=== PATIENT | female | born 1985 | race Caucasian/White ===

== ENCOUNTER 2021-07-19 06:07 | Inpatient (IN) | payer OTHER, SELFPAY ==
[2021-07-19] VITALS (91 sets, daily range): BP systolic 69–131; BP diastolic 41–87; PULSE 65–114; RESP 16–18; TEMP 36.2–37.6; O2SAT 96–100; BMI 25.9
--- OUTSIDE RECORDS SUMMARY | 2021-07-19 06:13 | XMS_ITS | Encounter Summary ---
:1985 Author Reason for Visit return OB visit Assessment and Plan 1. Advanced maternal age Discussion Note: None recorded.Patient educational handouts: No information available. Plan of Care Reminders Provider Appointments None ? ? recorded. Lab None ? ? recorded. Referral None ? ? recorded. Procedures None ? ? recorded. Surgeries None ? ? recorded. Imaging None ? ? recorded. Medications No Medications Reported Notes: pnv/ iron Medications Administered None recorded. Vitals Height Weight Blood Pressure 5 ft 4 in 149 lbs 110/66 mm[Hg] Results Lab Results None recorded. Allergies Code Code System Name Reaction Severity Onset NKDA ? ? ? Problems Name Status Onset Date Source ? Active 12/02/2020 ? Procedures Date Name Performed by ? ? Appendectomy Information not avai lable Notes: 2014 ? Other Information not avai lable Notes: 2012 suction D&C after taking the pill ? Gastrointestinal Surgery Information not availabl
--- OUTSIDE RECORDS SUMMARY | 2021-07-19 06:13 | XMS_ITS | Encounter Summary ---
:1985 Author Reason for Visit OB Ultrasound Assessment and Plan None recorded.Discussion Note: None recorded.Patient educational handouts: No information available. Plan of Care Reminders Provider Appointments None ? ? recorded. Lab None ? ? recorded. Referral None ? ? recorded. Procedures None ? ? recorded. Surgeries None ? ? recorded. Imaging None ? ? recorded. Medications No Medications Reported Notes: pnv/ iron Medications Administered None recorded. Vitals None recorded. Results Lab Results None recorded. Allergies Code Code System Name Reaction Severity Onset NKDA ? ? ? Problems Name Status Onset Date Source ? Active 12/02/2020 ? Procedures Date Name Performed by ? ? Appendectomy Information not avai lable Notes: 2014 ? Other Information not [facility] Notes: 2013 suction D&C after taking the pill ? Gastrointestinal Surgery Information not available Notes: 2009 double bowel obstruction 3 inches of colon removed Notes: lung collapse- chest tube 2017 Vaccine
--- OUTSIDE RECORDS SUMMARY | 2021-07-19 06:13 | XMS_ITS | Encounter Summary ---
:1985 Author Reason for Visit return OB visit Assessment and Plan 1. Routine care 2. Dysuria ? culture, urine Discussion Note: None recorded.Patient educational handouts: No information available. Plan of Care Reminders Provider Appointments None ? ? recorded. Lab Culture, 06/01/2021 [facility] ( Lab) Referral None ? ? recorded. Procedures None ? ? recorded. Surgeries None ? ? recorded. Imaging None ? ? recorded. Medications No Medications Reported Notes: pnv/ iron Medications Administered None recorded. Vitals Height Weight Blood Pressure 5 ft 4 in 145 lbs 100/58 mm[Hg] Results Lab Results None recorded. Allergies Code Code System Name Reaction Severity Onset NKDA ? ? ? Problems Name Status Onset Date Source ? Active 12/02/2020 ? Procedures Date Name Performed by ? ? Appendectomy Information not abner burrell Notes: 2014 ? Other
--- OUTSIDE RECORDS SUMMARY | 2021-07-19 06:13 | XMS_ITS | Encounter Summary ---
[...] Weight Blood Pressure 5 ft 4 in 144 lbs 106/62 mm[Hg] Results Lab Results None recorded. Allergies [...]
--- OUTSIDE RECORDS SUMMARY | 2021-07-19 06:13 | XMS_ITS | Encounter Summary ---
:1985 Author Reason for Visit return OB visit Assessment and Plan 1. Routine care Discussion Note: None recorded.Patient educational handouts: No information available. Plan of Care Reminders Provider Appointments None ? ? recorded. Lab None ? ? recorded. Referral None ? ? recorded. Procedures None ? ? recorded. Surgeries None ? ? recorded. Imaging None ? ? recorded. Medications No Medications Reported Notes: pnv/ iron Medications Administered None recorded. Vitals Weight Blood Pressure 150 lbs 110/62 mm[Hg] Results Lab Results None recorded. Allergies Code Code System Name Reaction Severity Onset NKDA ? ? ? Problems Name Status Onset Date Source ? Active 12/02/2020 ? Procedures Date Name Performed by ? ? Appendectomy Information not abner burrell Notes: 2014 ? Other Information not abner burrell Notes: 2013 suction D&C after taking the pill ? Gastrointestinal Surgery Information not available
--- OUTSIDE RECORDS SUMMARY | 2021-07-19 06:13 | XMS_ITS | Encounter Summary ---
:1985 Author Reason for Visit return OB visit Assessment and Plan 1. Advanced maternal age ? streptococcus group B, cul ture, vaginal or rectal Discussion Note: None recorded.Patient educational handouts: No information available. Plan of Care Reminders Provider Appointments None recorded. ? ? Lab Streptococcus Gat [facility] Group B, Culture, Vaginal 06/16/2021 [facility] (Lab) or Rectal Referral None recorded. ? ? Procedures None recorded. ? ? Surgeries None recorded. ? ? Imaging None recorded. ? ? Medications No Medications Reported Notes: pnv/ iron Medications Administered None recorded. Vitals Height Weight Blood Pressure 5 ft 4 in 149 lbs 102/60 mm[Hg] Results Lab Results Date Name Specimen Result Interpretation Description Value Range Status Address ? 06/16/2021 Streptococcus SOURCE ABNORMAL Strep Gp positive negat art Final [facility]: Group B, NOT B [address] Culture, INDICATED TORRES+rflx Dami bone Vaginal or Rd, Rectal [place] ? ? SOURCE ? Organism comment ? Final [facility] rp: NOT Identific
--- OUTSIDE RECORDS SUMMARY | 2021-07-19 06:13 | XMS_ITS ---
:1985 Author Care Team Providers Name Role Phone Stan Corona Primary Care Provider Unavailable Allergies Code Code System Name Reaction Severity Status Onset NKDA ? Medications Name Status Start Date Stop Date ? ? Estarylla 0.25 mg-35 mcg tablet Completed ? 11/30/2020 TK 1 T PO QD ibuprofen 600 mg tablet Completed ? 12/01/19 TK 1 T PO Q 6 H PRF CRAMPING Iron (ferrous sulfate) 325 mg (65 mg iron) tablet Completed 09/11/2018 03/01/2019 Take 1 tablet twice a day by oral route. metoclopramide 10 mg tablet Completed ? 01/14 TAKE 1 TABLET BY MOUTH FOUR TIMES DAILY FOR 10 DAYS nitrofurantoin monohydrate/macrocrystals 100 mg capsule Complete d ? 03/30/2021 TAKE 1 CAPSULE BY MOUTH EVERY 12 HOURS FOR 7 DAYS Notes: pnv/ iron Problems Name Status Onset Date Source ? Unknown 04/10/2018 History Active 12/02/2020 ? Procedures Date Name Performed by ? ? Appendectomy Information not avai [facility] Notes: 2014 ? Other Information not [facility] Notes: 2013 suction D&C after taking the pill ? Gastrointestinal Surgery Information not available Notes: 2009 double bowel obstruction 3 inches of colon removed 11/30/2020 US, Obstetric, 1St Trimester [facility] (Imaging) [address] [place], [place] [address]
--- OUTSIDE RECORDS SUMMARY | 2021-07-19 06:14 | XMS_ITS | Encounter Summary ---
[...] Pressure 5 ft 4 in 145 lbs 106/58 mm[Hg] Results Lab Results None recorded. Allergies Code Code System Name Reaction Severity Onset NKDA ? ? ? Problems Name Status Onset Date Source ? Active 12/02/2020 ? Procedures Date Name Performed by ? ? Appendectomy Information not avai lable Notes: 2014 ? Other Information not liaai [facility] Notes: 2012 suction D&C after taking the pill ? Gastrointestinal Surgery Information not available
--- OUTSIDE RECORDS SUMMARY | 2021-07-19 06:14 | XMS_ITS ---
:1985 Author Care Team Providers Name Role Phone GEN VELOZ Primary Care Provider [phone] Allergies Code Code System Name Reaction Severity Status Onset NKDA ? Medications Name Status Start Date Stop Date ? ? Estarylla 0.25 mg-35 mcg tablet Active ? Not available TK 1 T PO QD ibuprofen 600 mg tablet Active ? Not avai lable TK 1 T PO Q 6 H PRF CRAMPING Iron (ferrous sulfate) 325 mg (65 mg iron) tablet Completed ? 03/01/2019 Take 1 tablet twice a day by oral route. nitrofurantoin monohydrate/macrocrystals 100 mg capsule Complete d ? 06/12/2018 TK 1 C PO Q 12 H FOR 7 DAYS Problems Name Status Onset Date Source ? Unknown 04/10/2018 ? Procedures Date Name Performed by ? ? Appendectomy Information not abner burrell Notes: age 16 ? Gastrointestinal Surgery Information not available Notes: 2009 double bowel obstruction 3 inches of colon removed ? 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
--- OUTSIDE RECORDS SUMMARY | 2021-07-19 06:14 | XMS_ITS | Encounter Summary ---
:1985 Author Reason for Visit return OB visit Assessment and Plan 1. Routine care ? glucose tolerance test, ge stational, 1-hour ? HIV (1+2) Ab screen, serum ? hemoglobin + hematocrit, b lood Discussion Note: None recorded.Patient educational handouts: No information available. Plan of Care Reminders Provider Appointments None recorded. ? ? Lab Glucose [facility] Tolerance Test, 04/27/2021 [facility] ( Lab) Gestational, 1-Hour ? HIV (1+2) Ab [facility] Screen, Serum 04/27/2021 [facility] ( Lab) ? Hemoglobin + [facility] Hematocrit, Blood 04/27/2021 [facility] (Lab) Referral None recorded. ? ? Procedures None recorded. ? ? Surgeries None recorded. ? ? Imaging None recorded. ? ? Medications No Medications Reported Notes: pnv/ iron Medications Administered None recorded. Vitals Height Weight Blood Pressure 5 ft 4 in 142 lbs 112/74 mm[Hg] Results Lab Results Date Name Specimen Result Interpretat
--- NOTE | 2021-07-19 06:35 | LDADM ---
This patient, Kya Kennedy, was admitted to Labor/Delivery/Recovery 105 on 07/19/21 at 06:07. Plans for labor, pain management and were discussed with patient. Patient/family oriented to hospital policies and general routines including ID bracelet, bed and alarms, visiting hours, pain management, procedures, bathroom and other care routines, personal items, smoking policy, room service/diet and guest tray routines, infant security routines, and visiting hours. Patient/Family are encouraged to report perceived risks to care and to ask questions if they do not understand what they are told or what they should do. See OBIX for further documentation.
[2021-07-19 07:02] LABS: Basophils Percent Auto 0.5 % (0.2-1.2); Eosinophils Absolute Auto 0.2 K/mm3 (0-0.3); Eosinophils Percent Auto 1.9 % (0-4.4); Hematocrit 30.9 % (37.0-47.0); Hemoglobin 9.3 g/dL (12.0-15.0); Immature Granulocyte Absolute 0.16 K/mm3 (0.00-0.031); Immature Granulocyte Percent A 1.8 % (0-0.5); Immature Platelet Fraction Pct 21.7 % (0.9-11.2); Lymphocytes Percent Auto 26.1 % (18.3-44.2); Mean Corpuscular HGB Conc 30.1 g/dl (32-36); Mean Corpuscular Hemoglobin 21.8 pg (26-34); Mean Corpuscular Volume 72.4 fl (80-100); Monocytes Absolute Auto 0.7 K/mm3 (0.1-0.6); Monocytes Percent Auto 7.5 % (2.6-8.5); Neutrophils Absolute Auto 5.5 K/mm3 (1.3-6.7); Neutrophils Percent Auto 62.2 % (45.5-73.1); Platelet Count Result 167 k/mm3 (150-375); Red Blood Count 4.27 M/mm3 (4.2-5.4); Red Cell Distribution Width 18.4 % (11.5-14.5); White Blood Count 8.8 K/mm3 (4.5-10.0)
[2021-07-19] MEDS: AMPICILLIN 2 GM/NS 100 ML 2 GM/100 ML BAG IVPB (07:09)
[2021-07-19] MEDS: OXYTOCIN 30 UNITS/NS 500 ML 30 UNITS/500 ML BAG IV CONT (07:10)
[2021-07-19] MEDS: LACTATED RINGERS 1,000 ML 125 ML IV CONT ×2 (07:10→08:42)
--- NOTE | 2021-07-19 08:41 | WPDANESEPP ---
Anes - Eval Pre Procedure Procedure: labor epidural Date/Time: 07/19/21 08:41 Pre Op Diagnosis: Induction of Labor Patient Data Age: 36 Gender: F Height: 1.63 m Weight: 68.5 kg Last Vital Signs Temp 37.6 C H 07/19/21 07:17 Pulse 81 07/19/21 08:30 BP 107/72 07/19/21 08:30 Allergies Allergy/AdvReac Type Severity Reaction Status Date / Time No Known Allergies Allergy Verified 10/01/18 12:38 Home Medications Medication Instructions Recorded Confirmed Type PNV cmb#95-ferrous fumarate-FA 1 tablet PO DAILY 06/24/21 07/19/21 History [] ferrous sulfate [Iron (ferrous 325 mg PO DAILY 06/24/21 07/19/21 History sulfate)] Laboratory Tests 07/19/21 07/19/21 07/19/21 06:47 06:47 06:47 WBC 8.8 K/mm3 K/mm3 (4.5-10.0) RBC 4.27 M/mm3 M/mm3 (4.2-5.4) Hgb 9.3 g/dL L g/dL (12.0-15.0) Hct 30.9 % L % (37.0-47.0) MCV 72.4 fl L fl (80-100) MCH 21.8 pg L pg (26-34) MCHC 30.1 g/dl L g/dl (32-36) RDW 18.4 % H % (11.5-14.5) Plt Count 167 k/mm3 k/mm3 (150-375) MPV TNP Immature Gran % (Auto) 1.8 % H % (0-0.5) Neut % (Auto) 62.2 % % (45.5-73.1) Lymph % (Auto) 26.1 % % (18.3-44.2) [place] % (Auto) 7.5 % % (2.6-8.5) Eos % (Auto) 1.9 % % (0-4.4) Baso % (Auto) 0.5 % % (0.2-1.2) Lymph # (Auto) 2.30 K/mm3 K/mm3 (0.9-3.2) [place] # (Auto) 0.7 K/mm3 H K/mm3 (0.1-0.6) Eos # (Auto) 0.2 K/mm3 K/mm3 (0-0.3) Baso # (Auto) 0.0 K/mm3 K/mm3 (0.0-0.1) Abs Immat Gran (auto) 0.16 K/mm3 H K/mm3 (0.00-0.031) Absolute Neuts (auto) 5.5 K/mm3 K/mm3 (1.3-6.7) Absolute Nucleated RBC 0.0 K/mm3 K/mm3 (0.0-0.012) Nucleated RBC % 0.0 % % (0.0-0.2) % Immature Plt Fraction 21.7 % H % (0.9-11.2) RPR Pending Blood Type O Positive Antibody Screen Negative Patient hx anesthesia problems: none Family hx anesthesia problems: none Results Review: All pre-operative results and documents have been reviewed as part of the pre-operative evaluation. [facility] Family History Family History Other No pertinent family history Social History Social History Smoking status: Former smoker Smoking end date: 12/15/16 Substance use: never Spiritual care concerns: No Exam Day of Procedure 07/19/21 08:41 Patient weight: normal Heart: regular rate and rhythm Lungs: normal air movement Airway: Mallampati scale class II Neurological: alert and oriented
[2021-07-19] MEDS: AMPICILLIN 1 GM/NS 50 ML 1 GM/50 ML BAG IVPB (11:01)
--- NOTE | 2021-07-19 13:06 | WPDOBADMIT ---
Obstetrics - Admit Note Admission Note: record reviewed. No pertinent additions to the history and/or any subsequent changes in the physical findings that are not consistent with the expected course of the were found. Additions to the history and/or subsequent changes in the physical findings follow. None.
--- NOTE | 2021-07-19 13:07 | WPDHPUPDATE1 ---
History and Physical Update Update Date/Time: 07/19/21 13:07 History and Physical has been reviewed, including an updated exam of the patient. There are NO changes in the patient's condition. Risks, benefits, and alternatives have been discussed and questions answered. Patient agrees to proceed with procedure.
--- NOTE | 2021-07-19 13:07 | PM.OBPRVD ---
OB - Delivery Note Procedure Route of delivery: Episiotomy description: None Laceration Description: Perineal - 1st Degree Specimen: No Quantitative Blood Loss (ml): 300 Anesthesia type: Epidural Disposition: floor Narrative: Patient prepped and draped in usual manner for this procedure. Maternal expulsive efforts readily delivered vertex which was followed by the rest of baby without difficulty. Cord was clamped cut placenta delivered spontaneously. Uterus was well contracted no significant bleeding. Cervix vagina vulva were inspected minimal vaginal wall laceration was noted and approximated using [id number] 2 0 chromic. at this point the procedure was considered terminated with immediate postop condition of mother and baby both excellent. Baby Weeks of gestation at delivery: 39 gender: Female Weight (pounds): 8 Weight (ounces): 5 score one minute: 9 score five minutes: 9
--- NOTE | 2021-07-19 13:11 | PM.OBPRVD ---
OB - Delivery Note Procedure Anesthesia type: Epidural Baby Weeks of gestation at delivery: 39 Infant gender: Female Weight (pounds): 8 Weight (ounces): 5 score one minute: 9 score five minutes: 9 AMG Delivery Billing Delivery Delivery: Delivery Charge
[2021-07-19] MEDS: OXYTOCIN 30 UNITS/NS 500 ML 30 UNITS/500 ML BAG 125 UNITS IV CONT (13:32)
[2021-07-19] MEDS: IBUPROFEN 600 MG TABLET PO ×2 (14:42→22:30)
[2021-07-19] MEDS: BENZOCAINE 20% AER SPR (*SP) 56 GM CAN 1 SPRAY TOPICAL (14:43)
[2021-07-19] MEDS: WITCH HAZEL 40 PADS 1 PAD TOPICAL (14:43)
--- NOTE | 2021-07-19 16:55 | PC.NURSE ---
Patient transferred to post room #285 via wheelchair. Support person present. Oriented to unit, room, information board, rooming in, admission packet and security measures. Patient verbalizes understanding.
[2021-07-19] MEDS: ACETAMINOPHEN 325 MG TABLET 650 MG PO (17:14)
[2021-07-19] MEDS: DOCUSATE SODIUM 100 MG CAPSULE PO (17:14)
[2021-07-19] MEDS: POLYSACCHARIDE IRON COMPLEX 150 MG CAPSULE PO (17:14)
[2021-07-20] MEDS: ACETAMINOPHEN 325 MG TABLET 650 MG PO (04:50)
[2021-07-20 05:23] LABS: Hematocrit 25.9 % (37.0-47.0); Hemoglobin 7.9 g/dL (12.0-15.0)
[2021-07-20 08:00] VITALS: BP 104/70; PULSE 64; RESP 18; TEMP 36.3
[2021-07-20] MEDS: WITCH HAZEL 40 PADS 1 PAD TOPICAL (08:38)
[2021-07-20] MEDS: BENZOCAINE 20% AER SPR (*SP) 56 GM CAN 1 SPRAY TOPICAL (08:38)
[2021-07-20] MEDS: LANOLIN (LANSINOH) 7.5 GM CREAM 1 APPLIC TOPICAL (08:39)
[2021-07-20] MEDS: DOCUSATE SODIUM 100 MG CAPSULE PO (08:39)
[2021-07-20] MEDS: POLYSACCHARIDE IRON COMPLEX 150 MG CAPSULE PO (08:39)
[2021-07-20] MEDS: IBUPROFEN 600 MG TABLET PO (08:39)
[2021-07-20] MEDS: MULTIVIT/MIN/PREN/FOL AC/IRON TABLET 1 TAB PO (08:39)
--- NOTE | 2021-07-20 08:39 | PM.OBDSVD ---
DS: Admitting Diagnosis Discharge Date 07/20/2021 Admitting Diagnosis OB - DS: Summary OB Procedures : None OB Procedures Intrapartum: Spontaneous Vag Delivery OB Procedures: : None Time Spent with Patient Time attestation: Total time spent providing and/or coordinating discharge services: DS: Data Data Completed and Pending Labs on day of discharge: Labs from last 24 hours 07/20/21 04:48 Hgb 7.9 L Hct 25.9 L Discharge Plan Discharge Discharging Clinician: Stan Corona Patient Disposition: Home, Self-Care Activity: as tolerated Diet: as tolerated Patient Instructions: Antibiotic Form Stand Alone Forms: General Discharge Information Follow-up/Referrals: Stan Corona MD [Physician] - 3 Weeks Discharge Medications: New ibuprofen 600 mg Tablet 600 mg PO Q6H PRN (Reason: Cramping) Qty: 30 RF: 0 Continued ferrous sulfate [Iron (ferrous sulfate)] 325 mg (65 mg iron) Tablet 325 mg PO DAILY RF: 0 PNV cmb#95-ferrous fumarate-FA [] 28 mg iron- 800 mcg Tablet 1 tablet PO DAILY RF: 0 Date of admission: 07/19/21 06:07 Primary Care Provider: PHYSICIAN,DATABASE DESIGN ANALYST Admitting Provider: Stan Corona Attending physician on admission: Stan Corona Condition: Stable
--- NOTE | 2021-07-20 09:25 | WPDANLDPN2 ---
Anes-Prog Note L&D Date/Time: 07/20/21 09:25 Comfortable throughout: labor and delivery Neuraxial method: epidural Epidural/Spinal procedure site: clean & non-tender Neuro status: Neuro function grossly intact. Cardiovascular status: normal Respiratory status: normal Airway patency: baseline Mental status: baseline Post-Op hydration status: normal Vital Signs: Last Vital Signs Temp 36.4 C 07/19/21 20:25 Pulse 68 07/19/21 20:25 Resp 16 07/19/21 20:25 BP 110/74 07/19/21 20:25 Pulse Ox 100 07/19/21 20:25 Pain score (VAS): 07/26 I/O: Intake & Output 07/19/21 07/20/21 07/20/21 23:59 07:59 15:59 Output Total 75 Balance -75 Post-procedural complaints: none Patient feedback: Patient satisfied with anesthetic care.
[2021-07-20 11:38] VITALS: BP 103/70; PULSE 60; RESP 18; TEMP 36.8; O2SAT 100
[2021-07-20 14:56] LABS: Rapid Plasma Reagin Non-Reactive (NonReactive)
[2021-07-22 10:21] VITALS: BP 120/78; PULSE 68; RESP 20; TEMP 36.8; O2SAT 100
== END 2021-07-20 13:55 | disposition home or self-care (01) | DRG 560 ==
LOC: ANHLDR 06:12 → ANHOB2 17:01
PROVIDERS: Admitting Provider Obstetrics & Gynecology; Visit Provider Obstetrics & Gynecology
DX: O99.824 Streptococcus B carrier state complicating childbirth (principal); Z37.0 Single live birth; Z3A.40 40 weeks gestation of pregnancy; O70.0 First degree perineal laceration during delivery
CPT/HCPCS: 36415; 85014; 85018; 85025; 85055; 86592; 86850; 86900; 86901; A9270; J0290; J2590; J2795; J7120

== ENCOUNTER 2025-03-15 13:20 | Emergency (ER) | payer OTHER, SELFPAY ==
[2025-03-15 13:35] VITALS: BP 111/82; PULSE 87; RESP 14; TEMP 36.8; O2SAT 100
--- NOTE | 2025-03-15 14:29 | ED_ITS ---
HPI - Female Genitourinary General Chief complaint: Urogenital-Female Stated complaint: Uti Symptoms Time Seen by Provider: 03/15/25 14:15 Source: patient, RN notes reviewed and old records reviewed Mode of arrival: ambulatory Limitations: no limitations History of Present Illness HPI Narrative: 39 year old female who presents to express care with complaints of pain with urination and cloudy urine and pain to her left lower flank area and to her lower back since yesterday. Patient reports that she has not had any fevers but has felt chilly today with some slight nausea and deccreased appetite. MD elicited complaint: UTI Onset (ago): day(s) (day 2 of symptoms) Related Data Allergies Allergy/AdvReac Type Severity Reaction Status Date / Time No Known Allergies Allergy Verified 03/15/25 13:57 Review of Systems Review of Systems: CONSTITUTIONAL: Denies fever,reports some chills, no sweats. CARDIOVASCULAR: Denies chest pain, palpitations, or edema. RESPIRATORY: Denies cough or dyspnea. GASTROINTESTINAL: Denies abdominal pain,some nausea nausea, no vomiting, or diarrhea. GENITOURINARY: Reports dysuria, frequency, urgency. left flank pain no hematuria. SKIN: Denies rash or itching. MUSCULOSKELETAL: reports low back pain or myalgia. left CVA tenderness NEUROLOGIC: Denies headache All systems reviewed & are unremarkable except as noted in HPI and below PMFSH Past Medical History Medical History Seasonal allergies Miscarriage 2013 suction d&c after taking pill Bowel obstruction 3 inches of colon removed/double bowel obstruction Collapsed lung 2017 collapsed lung/chest tube Depression Anxiety Surgical History Surgical History History of colon surgery History of appendectomy 2014 Family History Family History Mother Diabetes mellitus Sibling Thyroid disorder Other Foster care child Social History Social History Smoking status: Former smoker Second hand tobacco smoke exposure: Yes Smoking end date: 12/15/16 Alcohol intake: former Alcohol use details: very rarely has a wine cooler Substance use: never Substance use type: does not use Do You Feel Safe in your Home?: Yes Lack of Transportation: No Lack of Food: Never True Current Housing: I Have Housing Concerned About Future Housing: No Difficulty Paying Gas/Electric Bills: No Difficulty Paying for Meds: No Currently Unemployed: No Education: Trade/Vocational Certificate Difficulty w/ Childcare or Family Care: No Living arrangements: alone Additional living arrangements comments: boyfriend Occupation/Education: other Additional occupation/education comments: stay at home mom Gender identity (if verbalized by the patient): Female Sexual Orientation (if Verbalized by the Patient): Straight or Heterosexual Spiritual care concerns: No Agree to blood products: Yes Comments At time of signature, agree with nursing past medical, surgical, social and family history. There is no relevant family history pertinent to the presenting complaint Exam Narrative: GENERAL: Well-appearing, well-nourished, and in no acute distress. HEAD: Normocephalic, atraumatic. NECK: Supple.no lymphadenopathy CHEST: Clear to auscultation. No respiratory distress.SAO2 100% on room air HEART: Regular rate and rhythm. No murmur heard. Normal peripheral pulses. ABDOMEN: Soft, nontender, nondistended, normal active bowel sounds. left CVA tenderness with some low back pain, cloudy urine EXTREMITIES: Normal range of motion. No edema. SKIN: Warm, dry, no rash. NEURO: No focal deficits. Alert and oriented x3. Course Course Emergency Course: Patient is aware of diagnosis, understands and agrees to treatment plan.? Anticipatory guidance given.? Patient agrees to follow-up as directed and is aware of reasons to seek care at the emergency department. Portions of this record may have been created with voice recognition software Level of Care: Express Care Visit Vital Signs Vital signs: Vital Signs Temperature 36.8 C 03/15/25 13:35 Pulse Rate 87 03/15/25 13:35 Respiratory Rate 14 03/15/25 13:35 Blood Pressure 111/82 03/15/25 13:35 Pulse Oximetry 100 03/15/25 13:35 Oxygen Delivery Room Air 03/15/25 13:35 Temperature 36.8 C 03/15/25 13:35 Pulse Rate 87 03/15/25 13:35 Respiratory Rate 14 03/15/25 13:35 Blood Pressure 111/82 03/15/25 13:35 Pulse Oximetry 100 03/15/25 13:35 Oxygen Delivery Room Air 03/15/25 13:35 reviewed MDM - Female Genitourinary MDM Narrative Medical decision making narrative: Exam findings and UA show no acute concerns or changes; patient is non-toxic appearing and is in no distress.? Patient is appropriate for outpatient treatment and follow-up. Differential Diagnosis Differential diagnosis: Likely urinary tract infection, cystitis and other (dysuria) Medical Records Attestation: I reviewed the patient's medical records. Lab Data Attestation: I reviewed the patient's lab results. Lab results narrative: urine dip reviewed with urine noted to be yellow and cloudy with blood 1+ and Leukocyte esterase 2+ URINE CULTURE SENT Labs: Lab Results 03/15/25 Range/Units 14:33 POC Urine Color Yellow POC Urine Clarity Cloudy POC Urine pH 6.0 POC Ur Specif [place] 1.010 POC Urine Protein Negative (Negative) POC Ur Glucose (UA) Negative (Negative) POC Urine Ketones Negative (Negative) POC Urine Blood 1+ (Negative) POC Urine Nitrite Negative (Negative) POC Urine Bilirubin Negative (Negative) POC Urine Urobilinogen 0.2 POC U Leukocyte Esteras 2+ (Negative) reviewed Critical Care Time Critical Care Time Critical Care Time: No Discharge Plan Discharge Clinical Impression: UTI (urinary tract infection) Qualifiers: Urinary tract infection type: site unspecified Hematuria presence: with hematuria Qualified Code(s): N39.0 - Urinary tract infection, site not specified ; R31.9 - Hematuria, unspecified Patient Disposition: Home Condition: Stable Instructions: Antibiotic Form, Urinary Tract Infection in Women (ED) Additional Instructions: Increase fluids especially cranberry juice and water Avoid caffeine and carbonated beverages Antibiotic as directed Medicine as directed--cautioned it will cause your urine to be bright orange Tylenol/ibuprofen for pain or fever Follow-up with her primary care provider if further problems or concerns Recheck if you have fever over 101, nausea and vomiting. urine culture sent Patient Language: Indonesian Prescriptions: New nitrofurantoin monohyd/m-cryst [Macrobid] 100 mg capsule 100 mg PO Q12H 7 Days Qty: 14 0RF Rx Instructions: must administer with a meal/food No Action norgestimate-ethinyl estradiol [Estarylla] 0.25-35 mg-mcg tablet 1 tablet PO DAILY Qty: 84 3RF Follow-up/Referrals: Kya Haji DO [Primary Care Provider, [facility]] Time of Disposition: 14:35 Quality Ann Coma Scale Eyes: Open Verbal: Oriented and Alert Motor: Follows Commands Ann Coma Total Score: 15
[2025-03-15 14:35] LABS: EDUAAPPEAR Cloudy; EDUABILI Negative (Negative); EDUABLOOD 1+ (Negative); EDUACOLOR1 Yellow; EDUAGLUCOSE Negative (Negative); EDUAKETONE Negative (Negative); EDUALEUKO 2+ (Negative); EDUANITRATE Negative (Negative); EDUAPH 6.0; EDUAPROTEIN Negative (Negative); EDUASPGRAVITY 1.010; EDUAUROBILI 0.2
== END 2025-03-15 14:50 | disposition home or self-care (01) ==
PROVIDERS: Emergency Provider Registered Nurse; PCP Family Medicine
DX: N39.0 Urinary tract infection, site not specified (principal); R31.9 Hematuria, unspecified; Z87.891 Personal history of nicotine dependence
CPT/HCPCS: 81003; 87086; 99213; G0463

== ENCOUNTER 2025-06-22 11:43 | Emergency (ER) | payer OTHER, SELFPAY ==
[2025-06-22 12:03] VITALS: BP 104/81; PULSE 63; RESP 16; TEMP 36.6; O2SAT 100
--- NOTE | 2025-06-22 13:09 | ED_ITS ---
HPI - General Adult General Chief complaint: Dental/Oral Stated complaint: Toothache History of Present Illness HPI narrative: 40-year-old female patient presents to [facility] with complaints of left upper dental pain past 2 days. Patient states she has had to take NSAIDs pain for the past patient states she does not have a current that test at this time. Patient denies fevers body aches or chills. Patient states she has been taking Tylenol for the pain which has not helped at all. Related Data Allergies Allergy/AdvReac Type Severity Reaction Status Date / Time No Known Allergies Allergy Verified 06/22/25 12:23 Review of Systems Review of Systems: CONSTITUTIONAL: Denies fever, chills, or sweats. EYES: Denies visual changes, redness, or discharge. ENT: Denies rhinorrhea, congestion, sore throat, or otalgia. Positive left upper dental pain x2 days CARDIOVASCULAR: Denies chest pain, palpitations, or edema. RESPIRATORY: Denies cough or dyspnea. GASTROINTESTINAL: Denies abdominal pain, nausea, vomiting, or diarrhea. GENITOURINARY: Denies dysuria or hematuria. SKIN: Denies rash or itching. MUSCULOSKELETAL: Denies back pain, joint pain, or myalgia. NEUROLOGIC: Denies headache, numbness, or weakness. PSYCHIATRIC: Denies anxiety or depression. FOR[facility]LY [facility] Past Medical History Medical History Seasonal allergies Miscarriage 2013 suction d&c after taking pill Bowel obstruction 3 inches of colon removed/double bowel obstruction Collapsed lung 2017 collapsed lung/chest tube Depression Anxiety Surgical History Surgical History History of colon surgery History of appendectomy 2014 Family History Family History Mother Diabetes mellitus Sibling Thyroid disorder Other Foster care child Social History Social History Smoking status: Former smoker Second hand tobacco smoke exposure: Yes Smoking end date: 12/15/16 Alcohol intake: former Alcohol use details: very rarely has a wine cooler Substance use: never Substance use type: does not use Lack of Transportation: No Lack of Food: Never True Current Housing: I Have Housing Concerned About Future Housing: No Difficulty Paying Gas/Electric Bills: No Difficulty Paying for Meds: No Currently Unemployed: No Education: Trade/Vocational Certificate Difficulty w/ Childcare or Family Care: No Living arrangements: alone Additional living arrangements comments: boyfriend Occupation/Education: other Additional occupation/education comments: stay at home mom Gender identity (if verbalized by the patient): Female Sexual Orientation (if Verbalized by the Patient): Straight or Heterosexual Spiritual care concerns: No Agree to blood products: Yes Comments at the time of my signature I agree with nursing past medical history, surgical, social, and family history. There is no relevant family history pertinent to the presenting complaint. Exam Narrative: GENERAL: Well-appearing, well-nourished, and in no acute distress. HEAD: Normocephalic, atraumatic. EYES: PERRLA and EOMI. ENT: Nares clear, no rhinorrhea or epistaxis. Mucous membranes moist. patient has very erythemic gums noted to the left upper dental cavity over the left upper canines and molars. There is no obvious abscess but there is tenderness on palpation. No discharge noted. Note swelling to the outer cheek at this time. NECK: Supple. No lymphadenopathy CHEST: Clear to auscultation. No respiratory distress. HEART: Regular rate and rhythm. No murmur heard. Normal peripheral pulses. ABDOMEN: Soft, nontender, nondistended, normal active bowel sounds. EXTREMITIES: Normal range of motion. No edema. SKIN: Warm, dry, no rash. NEURO: No focal deficits. Alert and oriented x3. Course Course Level of Care: Express Care Visit Vital Signs Vital signs: Vital Signs Temperature 36.6 C 06/22/25 12:03 Pulse Rate 63 06/22/25 12:03 Respiratory Rate 16 06/22/25 12:03 Blood Pressure 104/81 06/22/25 12:03 Pulse Oximetry 100 06/22/25 12:03 Temperature 36.6 C 06/22/25 12:03 Pulse Rate 63 06/22/25 12:03 Respiratory Rate 16 06/22/25 12:03 Blood Pressure 104/81 06/22/25 12:03 Pulse Oximetry 100 06/22/25 12:03 Vital signs reviewed. MDM MDM Narrative Medical decision making narrative: Plan care patient is discharged home with oral antibiotic for dental infection as well as a mild pain medication to help with pain. Patient will receive a dental referral sheet for follow-up. patient is aware the plan of care at this time. Differential Diagnosis Differential Diagnosis: Differential diagnosis: Dental caries, periodontal disease, avulsed tooth, tooth infections, mandibular infection, Ean's angiana, upper tooth infection, dry socket, gingivitis, acute necrotizing ulcerative gingivitis, sialolithiasis. Discharge Plan Discharge Clinical Impression: Toothache, Gingivitis Patient Disposition: Home Condition: Stable Instructions: Antibiotic Form, Toothache (ED) Additional Instructions: Antibiotic as directed Avoid temperature extremes May apply heat or ice to the face Gentle brushing and flossing Alternate Tylenol and ibuprofen as needed for pain Follow-up with the dentist as soon as possible--see the list provided Patient Language: Luxembourgish Prescriptions: New amoxicillin-pot clavulanate 875-125 mg tablet 1 tablet PO BID 7 Days Qty: 14 0RF tramadol 50 mg tablet 50 mg PO Q6H PRN (Reason: pain) 2 Days Qty: 8 0RF No Action norgestimate-ethinyl estradiol [Estarylla] 0.25-35 mg-mcg tablet 1 tablet PO DAILY Qty: 84 3RF Follow-up/Referrals: Kya Haji DO [Primary Care Provider, Family Practice] Time of Disposition: 13:12
== END 2025-06-22 13:14 | disposition home or self-care (01) ==
PROVIDERS: Emergency Provider Nurse Practitioner Family; PCP Family Medicine
DX: K08.89 Other specified disorders of teeth and supporting structures (principal); K05.10 Chronic gingivitis, plaque induced; Z87.891 Personal history of nicotine dependence
CPT/HCPCS: 99213; G0463